=== PATIENT | female | born 1985 | race Caucasian/White ===

== ENCOUNTER 2022-06-02 08:04 | Outpatient (CLI) | payer BC | END 2022-06-02 08:05 | disposition home or self-care (01) | LOC: CSHCT 08:04 | PROVIDERS: ATTEND Family Medicine | DX: R06.09 Other forms of dyspnea (principal); U09.9 Post COVID-19 condition, unspecified; R79.89 Other specified abnormal findings of blood chemistry; K76.0 Fatty (change of) liver, not elsewhere classified; R91.8 Other nonspecific abnormal finding of lung field | CPT/HCPCS: 71275 ==